=== PATIENT | female | born 1985 | race African-American/Black ===

== ENCOUNTER 2017-08-06 20:26 | Emergency (ER) | payer OTHER ==
[2017-08-06 21:01] LABS: BASO # 0.1 10^3/uL (0.0-0.2); BASO % 0.3 % (0.0-1.0); HEMATOCRIT 39.6 % (36.0-47.0); HEMOGLOBIN 12.3 g/dl (12.0-16.0); IMMATURE GRANULOCYTE # 0.1 10^3/uL (0-0); IMMATURE GRANULOCYTE % 0.6 % (0-0); LYMPH # 1.9 10^3/uL (1.5-4.5); LYMPH % 9.4 % (24.0-44.0); MEAN CORPUSCULAR HEMOGLOBIN 21.4 pg (27.0-33.0); MEAN CORPUSCULAR HGB CONC 31.1 g/dl (32.0-36.5); MEAN CORPUSCULAR VOLUME 68.9 fl (80.0-96.0); MONO # 1.8 10^3/uL (0.0-0.8); MONO % 9.3 % (0.0-5.0); NEUTROPHILS # 15.8 10^3/uL (1.8-7.7); NEUTROPHILS % 80.4 % (36.0-66.0); PLATELET COUNT, AUTOMATED 318 10^3/uL (150-450); RED BLOOD COUNT 5.75 10^6/uL (4.00-5.40); RED CELL DISTRIBUTION WIDTH 18.1 % (11.5-14.5); WHITE BLOOD COUNT 19.6 10^3/uL (4.0-10.0)
[2017-08-06] MEDS: RACEPINEPHrine 2.25 % UD INHA INH ×2 (21:12)
[2017-08-06] MEDS: AMPICILLIN SOD/SULBACTAM SOD 3 GM in D5W MINI-BAG PLUS 100 ML IV (21:20)
[2017-08-06 21:24] LABS: ANION GAP 10 MEQ/L (8-16); BLOOD UREA NITROGEN 12 MG/DL (7-18); CARBON DIOXIDE LEVEL 23 MEQ/L (21-32); CHLORIDE LEVEL 105 MEQ/L (98-107); CREATININE FOR GFR 0.97 MG/DL (0.55-1.30); GLOMERULAR FILTRATION RATE > 60.0 (>60); GLUCOSE, FASTING 128 MG/DL (70-100); POTASSIUM SERUM 3.4 MEQ/L (3.5-5.1); SODIUM LEVEL 138 MEQ/L (136-145)
[2017-08-06] MEDS ORDERED: ISOVUE-370 76% 100ML VIAL (Q9967) As Ordered ×2 (21:57)
[2017-08-06] MEDS: dexameTHASONE 20 MG/5 ML VIAL (J1100) IV ×2 (23:49)
[2017-08-07] MEDS: NS 1,000 ML IV ×2 (00:06)
[2017-08-07] MEDS: KETOROLAC 30 MG/ML VIAL (J1885) IV ×2 (00:07)
[2017-08-07] MEDS: AMPICILLIN SOD/SULBACTAM SOD 3 GM in D5W MINI-BAG PLUS 100 ML IV (03:03)
[2017-08-07] MEDS ORDERED: INFLUENZA QUADRIVALENT PF VACCINE 0.5ML SYRINGE (90686) IM ×2 (08:00)
[2017-08-07] MEDS: NORCO, ANEXSIA 5/325MG TABLET (HYDROcodone/ACETAMINOPHEN) PO ×2 (08:16)
== END 2017-08-07 08:51 | disposition home or self-care (01) ==
LOC: M ED 20:26
DX: J03.90 Acute tonsillitis, unspecified (principal); J39.1 Other abscess of pharynx
CPT/HCPCS: J1100

== ENCOUNTER → 2017-08-06 | Outpatient (REF) | payer OTHER | LOC: M SFHCLUC 11:30 | DX: J35.1 Hypertrophy of tonsils (principal) ==

== ENCOUNTER 2017-09-11 10:08 | Day surgery (SDC) | payer OTHER ==
[2017-09-11] MEDS ORDERED: LIDOCAINE 1% MDV 20ML VIAL SQ (10:15)
[2017-09-11] MEDS: LR 1,000 ML IV (10:29)
[2017-09-11 10:42] LABS: CONTROL LINE UCG INT CTR LINE PRESENT; URINE PREG TEST NEGATIVE (NEGATIVE)
[2017-09-11] MEDS ORDERED: PROPOFOL 200 MG/20 ML VIAL As Ordered (11:23)
[2017-09-11] MEDS ORDERED: LIDOCAINE 2% INJ 100 MG/5 ML SDV (FOR ANES.) As Ordered (11:23)
[2017-09-11] MEDS ORDERED: ROCURONIUM BROMIDE 50 MG/5 ML VIAL As Ordered (11:24)
[2017-09-11] MEDS ORDERED: dexameTHASONE 4 MG/ML 1ML VIAL (J1100) As Ordered ×2 (11:25)
[2017-09-11] MEDS ORDERED: fentaNYL 100 MCG/2 ML INJECTION (J3010) As Ordered ×2 (11:26→12:51)
[2017-09-11] MEDS ORDERED: MIDAZOLAM INJ 2 MG/2 ML VIAL (J2250) As Ordered (11:27)
[2017-09-11] MEDS ORDERED: OXYMETAZOLINE NASAL SPRAY (AFRIN) As Ordered (12:02)
[2017-09-11] MEDS: dexameTHASONE 4 MG/ML 1ML VIAL (J1100) IV (12:20)
[2017-09-11] MEDS ORDERED: GLYCOPYRROLATE INJ 0.2 MG/ML 2 ML VIAL As Ordered (12:30)
[2017-09-11] MEDS ORDERED: ONDANSETRON 4MG/2ML VIAL (J2405) As Ordered (12:49)
[2017-09-11] MEDS ORDERED: LR 1,000 ML IV ×2 (13:45)
[2017-09-11] MEDS ORDERED: fentaNYL 100 MCG/2 ML INJECTION (J3010) IV (13:45)
[2017-09-11] MEDS: KETOROLAC 30 MG/ML VIAL (J1885) IV (13:50)
[2017-09-11] MEDS: ONDANSETRON 4MG/2ML VIAL (J2405) IV (13:50)
[2017-09-11] MEDS: PERCOCET 5MG/325MG TAB PO (13:55)
== END 2017-09-11 15:25 | disposition home or self-care (01) ==
LOC: M SDC 10:08
DX: J35.1 Hypertrophy of tonsils (principal)
CPT/HCPCS: 42826

== ENCOUNTER → 2018-04-23 | Outpatient (CLI) | payer OTHER ==
[2018-04-23 09:03] LABS: CREATININE,RANDOM URINE 83.5 MG/DL
[2018-04-23 10:16] LABS: BASO % 0.2 % (0.0-1.0); EOS # 0.1 10^3/uL (0.0-0.50); EOS % 1.5 % (0.0-3.0); HEMATOCRIT 38.4 % (36.0-47.0); HEMOGLOBIN 11.8 g/dl (12.0-15.5); IMMATURE GRANULOCYTE % 0.3 % (0-3.0); MEAN CORPUSCULAR HEMOGLOBIN 22.1 pg (27.0-33.0); MEAN CORPUSCULAR HGB CONC 30.7 g/dl (32.0-36.5); MEAN CORPUSCULAR VOLUME 71.9 fl (80.0-96.0); MONO # 0.8 10^3/uL (0.0-0.8); MONO % 8.3 % (0.0-5.0); NEUTROPHILS # 6.5 10^3/uL (1.8-7.7); NEUTROPHILS % 68.7 % (36.0-66.0); PLATELET COUNT, AUTOMATED 314 10^3/uL (150-450); RED BLOOD COUNT 5.34 10^6/uL (4.00-5.40); RED CELL DISTRIBUTION WIDTH 17.4 % (11.5-14.5); WHITE BLOOD COUNT 9.4 10^3/uL (4.0-10.0)
[2018-04-23 11:07] LABS: CHLAMYDIA DNA AMPLIFICATION NEGATIVE (NEGATIVE)
[2018-04-23 11:46] LABS: HEMOGLOBIN A1c 5.9 %
[2018-04-23 13:55] LABS: ALT/SGPT 14 U/L (12-78); AST/SGOT 11 U/L (7-37); BILIRUBIN,TOTAL 0.3 MG/DL (0.2-1.0); CREATININE FOR GFR 0.61 MG/DL (0.55-1.30); GLOMERULAR FILTRATION RATE > 60.0 (>60); GLUCOSE CHALLENGE TEST 1 HOUR 109 MG/DL (LESS THAN 140); LDH LACTATE DEHYDROGENASE 187 U/L (84-246); URIC ACID 3.1 MG/DL (2.6-6.0)
[2018-04-24 10:58] LABS: RUBELLA IgG QUALITATIVE EQUIVOCAL (IMMUNE)
[2018-04-24 10:59] LABS: HBsAg Prenatal NEGATIVE (NEGATIVE)
[2018-04-24 11:27] LABS: HEPATITIS C VIRUS ABY INDEX < 0.0 INDEX (<0.8)
[2018-04-24 12:50] LABS: ESTIMATED AVERAGE GLUCOSE 123 MG/DL (60-110)
[2018-04-24 12:53] LABS: TOTAL PROTEIN,RANDOM URINE 9.5 MG/DL (0.0-12.0)
[2018-04-24 12:54] LABS: GC DNA AMPLIFICATION NEGATIVE (NEGATIVE)
[2018-04-24 12:55] LABS: HIV 1&2 SCREEN CENTAUR NEGATIVE (NEGATIVE)
== END ==
LOC: M LAB 08:08
DX: Z36.89 Encounter for other specified antenatal screening (principal); Z3A.10 10 weeks gestation of pregnancy
CPT/HCPCS: 84460

== ENCOUNTER → 2018-05-13 | Outpatient (REF) | payer OTHER | LOC: M LAB REF 17:00 | DX: O99.212 Obesity complicating pregnancy, second trimester (principal) ==

== ENCOUNTER → 2018-06-22 | Outpatient (CLI) | payer OTHER ==
[~2018-06-22] MED LIST: AUGM250S13 PO; DEXA1CON PO; HYDR1SOL17 PO; IBUP100S2 PO; IBUP100S5 PO; METH125VL IM
--- NOTE | 2018-06-23 04:36 | REP ---
Clinical: Anatomical evaluation. Comparison: None . Findings: Examination demonstrates a single live intrauterine in breech presentation. motion is identified by technologist. Placenta is noted anterior and grade grade 1 without evidence for placenta previa or abruption. Amniotic fluid volume is normal. Cervix measures 3.3 cm in length and appears closed. Nuchal cord cannot be excluded. Gestational age by LMP 19 weeks 6 days with KEVYN 11/10/2018 . Gestational age by current measurements 19 weeks 5 days with KEVYN 11/11/2018 . FHR equals 161 beats per minute. BPD 4.6 cm 19 weeks 5 days HC 17.0 cm 19 weeks 4 days AC 14.7 cm 20 weeks 0 days FL 3.1 cm 19 weeks 4 day HL 3.0 cm 19 weeks 6 days HC/AC ratio 1.16 Estimated weight 312 grams ( 42nd percentile). Anatomical assessment demonstrates normal structures including cranium, choroid plexus, cavum, cerebellum/posterior fossa, facial features, lungs, four-chamber heart/left ventricular outflow tract, diaphragm, stomach, cord insertion/three-vessel cord, kidneys/bladder, and extremities. Impression: 1. Single live intrauterine in breech presentation demonstrating appropriate interval growth. 2. Limited evaluation of the right cardiac ventricular outflow tract and spine may warrant reevaluation and follow-up. Remainder of the anatomical assessment is complete and normal. Electronically Signed by Zachary Nicole MD 06/23/2018 04:28 A
== END ==
LOC: M RAD 09:14
PROVIDERS: ATTEND Specialist
DX: O99.212 Obesity complicating pregnancy, second trimester (principal); Z3A.19 19 weeks gestation of pregnancy

== ENCOUNTER → 2018-07-21 | Outpatient (CLI) | payer OTHER ==
--- NOTE | 2018-07-22 05:01 | REP ---
Clinical: Anatomical evaluation. Comparison: 06/22/2018 . Findings: Examination demonstrates a single live intrauterine in cephalic presentation. motion is identified by technologist. Placenta is noted anterior and grade one without evidence for placenta previa or abruption. Amniotic fluid volume is normal. Cervix measures 3.8 cm in length and appears closed. No evidence for nuchal cord. Gestational age by LMP 24 weeks 0 days with KEVYN 11/10/2018 . Gestational age by current measurements 23 weeks 5 days with KEVYN see 11/12/2018 . FHR equals 136 beats per minute. Estimated weight 606 grams ( 32nd percentile). Anatomical assessment demonstrates normal structures including cranium, choroid plexus, cavum, cerebellum/posterior fossa, facial features, lungs, four-chamber heart/ventricular outflow tracts, diaphragm, stomach, cord insertion/three-vessel cord, bladder, and extremities. Impression: Single live intrauterine in cephalic presentation demonstrating appropriate interval growth. Limited evaluation of the spine again noted. Remainder of the anatomical assessment is complete and normal. Electronically Signed by Zachary Nicole MD 07/22/2018 04:52 A
== END ==
LOC: M RAD 09:06
PROVIDERS: ATTEND Advanced Practice Midwife
DX: Z34.82 Encounter for supervision of other normal pregnancy, second trimester (principal); Z36.89 Encounter for other specified antenatal screening; Z3A.24 24 weeks gestation of pregnancy

== ENCOUNTER 2018-08-12 14:25 | Outpatient (CLI) | payer OTHER ==
[~2018-08-12] VITALS: Ht 177.8 cm; Wt 130.9 kg
[~2018-08-12 14:25] MED LIST changes: -MAPA500T2 PO; -PRENTAB9 PO
[2018-08-12 14:47] VITALS: BP 146/101
[2018-08-12 15:09] VITALS: BP 130/61
[2018-08-12] MEDS: BETAMETHASONE SOLUSPAN 6MG/ML INJ 5ML (J0702) IM SCH (15:55)
[2018-08-12 16:29] VITALS: BP 138/77
[2018-08-12 18:05] VITALS: BP 129/64
--- NOTE | 2018-08-12 18:22 | IPN ---
DATE: 08/12/2018 Javed is a 33-year-old 5, para 4-0-0-4 at 27 weeks gestation with an estimated date of confinement (EDC) of 11/11/2018 based on first trimester ultrasound. She presents to labor and delivery today following an incidental finding of a shortened cervix for a routine follow-up anatomy ultrasound. She does deny vaginal bleeding, leakage of fluid and painful contractions. The fetus has been active. [facility]. Her course complicated by obesity, a history of gestational hypertension and prior pregnancies, advanced maternal age and GBS bacteremia, rubella equivocal with a plan to immunize. OBSTETRICAL HISTORY: September 2001 38-5/7 weeks, 6 pound, 9 ounce female, vaginal delivery, uncomplicated. February 2010 38-5/7 weeks gestation, 6 pound, 6 ounce male, vaginal delivery, uncomplicated. December 2011 41 weeks and two days, 7 pound 10 ounce female vaginal delivery, uncomplicated. July 2015 39-5/7 weeks, 6 pound, 10 ounce female, vaginal delivery, complicated by rapid precipitous delivery with a delivery in the vehicle on the way to the hospital and gestational hypertension for that . OBSTETRIC LABS: O+, antibody screen negative, rubella equivocal, VDRL nonreactive, positive Group B strep in the urine. Hepatitis B surface antigen negative, human immunodeficiency virus (HIV) negative. Hepatitis C antibody nonreactive. Gonorrhea and chlamydia negative. She did not have genetic serum screening labs drawn. Baseline pre-eclamptic labs in the normal range. PAST MEDICAL HISTORY: Gestational hypertension, varicose vein. The child had varicella. SURGERIES: Cholecystectomy. FAMILY HISTORY: Noncontributory. SOCIAL HISTORY: The patient is . Her is active duty soldier, who is currently out of town for training. She is a nonsmoker. Denies alcohol and drug use. No history of any sexually transmitted infections. Denies history of abuse. ALLERGIES: No known drug allergies. CURRENT MEDICATIONS: No regular medications. OBJECTIVE: Temperature 98.9, pulse 70, respirations 18, blood pressure (BP) is 138/77. She is alert and oriented x3. She is in no apparent distress, smiling and talkative. heart rate is 150, appropriate for gestational age. There is no pattern of contractions. Ultrasound reports fetus in cephalic presentation, spine still not seen due to position. Cervical length is 0.8 cm with the internal os appearing to be open. Sterile vaginal exam 2 cm dilated, 75% effaced and minus 2 station, posterior, soft. Very scant bloody show with the exam. ASSESSMENT: Intrauterine at 27 weeks. heart rate appropriate for gestational age. Asymptomatic cervical shortening. PLAN: Per consult with Dr. Musa, the patient for observation. Betamethasone has been already administered. She may have a regular diet. She may have bedrest with bathroom privileges. Plan to observe until beta complete and then further plan and care decision will be made following the second betamethasone injection. The patient has had all her questions answered and does understanding and agree with the plan.
[2018-08-12] MEDS ORDERED: PRENTAB9 PO (18:38)
[2018-08-12] MEDS ORDERED: MAPA500T2 PO (18:38)
[2018-08-12 19:11] VITALS: BP 130/71
[2018-08-12 21:02] VITALS: BP 103/59
[2018-08-13 06:36] VITALS: BP 97/53
[2018-08-13 08:01] VITALS: BP 109/62
--- NOTE | 2018-08-13 08:07 | NUR ---
Progress notes S: No complaints. No contractions. O: BP=99/53 P=66 AF NAD Abd: NT, gravid FHT: Cat I SVE: 2 cm/50%/-3 posterior moderate toco: none A/P 33 yo at 27 1/7 with cervical shortening Plan to give second dose of steroids today monitor intermittently Plan discharge today Raffi Musa MD
[2018-08-13] MEDS: BETAMETHASONE SOLUSPAN 6MG/ML INJ 5ML (J0702) IM SCH (11:18)
== END 2018-08-13 12:35 | disposition home or self-care (01) ==
LOC: M LDO 14:25
PROVIDERS: ATTEND Advanced Practice Midwife
DX: O26.873 Cervical shortening, third trimester (principal); O47.03 False labor before 37 completed weeks of gestation, third trimester; Z3A.27 27 weeks gestation of pregnancy
CPT/HCPCS: 96372; G0378; G0463; J0702

== ENCOUNTER → 2018-08-12 | Outpatient (CLI) | payer OTHER ==
[~2018-08-12] MED LIST changes: +MAPA500T2 PO; +PRENTAB9 PO
[2018-08-12 14:18] LABS: BASO % 0.2 % (0.0-1.0); EOS # 0.1 10^3/uL (0.0-0.50); EOS % 1.2 % (0.0-3.0); HEMATOCRIT 34.2 % (36.0-47.0); HEMOGLOBIN 10.4 g/dl (12.0-15.5); LYMPH # 1.6 10^3/uL (1.5-4.5); LYMPH % 14.7 % (24.0-44.0); MEAN CORPUSCULAR HEMOGLOBIN 22.5 pg (27.0-33.0); MEAN CORPUSCULAR HGB CONC 30.4 g/dl (32.0-36.5); MONO # 0.8 10^3/uL (0.0-0.8); MONO % 7.2 % (0.0-5.0); NEUTROPHILS # 8.1 10^3/uL (1.8-7.7); NEUTROPHILS % 76.2 % (36.0-66.0); PLATELET COUNT, AUTOMATED 329 10^3/uL (150-450); RED BLOOD COUNT 4.62 10^6/uL (4.00-5.40); WHITE BLOOD COUNT 10.6 10^3/uL (4.0-10.0)
== END ==
LOC: M SMT 08:48
PROVIDERS: ATTEND Obstetrics & Gynecology
DX: O09.522 Supervision of elderly multigravida, second trimester (principal); Z3A.00 Weeks of gestation of pregnancy not specified

== ENCOUNTER → 2018-08-12 | Outpatient (CLI) | payer OTHER ==
--- NOTE | 2018-08-12 15:29 | REP ---
Obstetric sonography: History: Supervision of . Advanced maternal age. Follow-up. Findings: Scanning through the gravid uterus demonstrates a viable single intrauterine gestation in a cephalic lie. motion is observed and heart rate is recorded at 149 beats per minute. Anterior grade 1 placenta is seen without evidence of previa or abruption. Amniotic fluid is subjectively normal. Closed cervical length measured transvaginally is only 0.8 cm. Internal cervical os is open with fluid in the endocervical canal. There has been appropriate interval growth. No extrauterine abnormality is observed. No anomaly is seen. spine is less than optimally seen today due to position. The following additional anatomic structures are again identified and felt to be sonographically unremarkable: cranium, choroid plexus, cavum, cerebellum and posterior fossa, face and profile, lungs, four-chamber heart with left and right ventricular outflow tract views, diaphragm, left-sided stomach, abdominal wall cord insertion, three-vessel umbilical cord, kidneys and bladder, upper and lower extremities. Biometry chart: BPD 6.6 cm, 26 weeks 4 days Head circumference 24.2 cm 26 weeks 2 days Abdominal circumference 23.0 cm 27 weeks 3 days Femur length 5.1 cm 27 weeks 2 days Humeral length 4.6 cm 27 weeks 2 days HC/AC ratio normal 1.05, cephalic index normal 0.76, estimated weight 1040 grams, 2 pounds 4 ounces, 45th percentile for 27 weeks 1 day. Impression: 1. Viable single intrauterine gestation at 27 weeks 0 days by today's composite sonographic criteria. Expected gestational age estimate based on prior sonography is 27 weeks 0 days as well. KEVYN by prior sonography November 11, 2018. 2. spine still less than optimally seen due to position. Otherwise anatomic survey is complete. 3. Closed cervical length is only 0.8 cm today with internal cervical os seen to be open on transvaginal imaging. Electronically Signed by Bi Monge MD 08/12/2018 07:18 P
== END ==
LOC: M RAD 13:17
PROVIDERS: ATTEND Advanced Practice Midwife
DX: O09.522 Supervision of elderly multigravida, second trimester (principal); Z3A.27 27 weeks gestation of pregnancy

== ENCOUNTER → 2018-08-26 | Outpatient (CLI) | payer OTHER ==
[~2018-08-26] MED LIST changes: +MAPA500T2 PO; +PRENTAB9 PO
== END ==
LOC: M LAB 08:18
PROVIDERS: ATTEND Obstetrics & Gynecology
DX: O09.522 Supervision of elderly multigravida, second trimester (principal); Z3A.00 Weeks of gestation of pregnancy not specified

== ENCOUNTER → 2018-08-26 | Outpatient (CLI) | payer OTHER ==
--- NOTE | 2018-08-27 05:13 | REP ---
Clinical: Anatomical evaluation. Comparison: 08/12/2018 . Findings: Examination demonstrates a single live intrauterine in the cephalic presentation. motion is identified by technologist. Placenta is noted anterior and grade there are grade 1 without evidence for placenta previa or abruption. Amniotic fluid volume is normal. Incompetent cervix measures 4 mm length. Gestational age by LMP 29 weeks 1 day with KEVYN 11/10/2018 . Gestational age by current measurements 29 weeks 1 day with KEVYN 11/10/2018 . FHR equals 145 beats per minute. Estimated weight 1348 grams ( 43rd percentile). Amniotic fluid index: 12.4 cm Umbilical cord SD ratio: 2.99 Anatomical is limited but without obvious abnormality. Impression: 1. Single live intrauterine in cephalic presentation demonstrating appropriate interval growth. 2. Incompetent cervix at 4 mm length. Ordering physician was advised and patient was sent home as per MD request. Electronically Signed by Zachary Nicoel MD 08/27/2018 05:05 A
== END ==
LOC: M RAD 11:52
PROVIDERS: ATTEND Advanced Practice Midwife
DX: O09.523 Supervision of elderly multigravida, third trimester (principal); O34.33 Maternal care for cervical incompetence, third trimester; Z3A.29 29 weeks gestation of pregnancy

== ENCOUNTER → 2018-10-16 | Outpatient (REF) | payer OTHER ==
[~2018-10-16] MED LIST changes: +IBUP0.77 PO; -IBUP100S2 PO; -IBUP100S5 PO; +IBUP100S65 PO
== END ==
LOC: M LAB REF 13:34
PROVIDERS: ATTEND Advanced Practice Midwife
DX: O09.523 Supervision of elderly multigravida, third trimester (principal); Z3A.00 Weeks of gestation of pregnancy not specified

== ENCOUNTER 2018-10-19 22:51 | Outpatient (CLI) | payer OTHER ==
[~2018-10-19] VITALS: Ht 180.3 cm; Wt 127.3 kg
[2018-10-19 23:08] VITALS: BP 113/77
--- NOTE | 2018-10-20 00:42 | REPVR ---
EXAM: US Doppler Velocimetry of the Umbilical Artery EXAM DATE/TIME: 10/19/2018 12:02 AM CLINICAL HISTORY: 33 years old, female; Signs and symptoms; Other: Decreased movement; . TECHNIQUE: Imaging protocol: US Doppler velocimetry of the umbilical artery with Doppler color and waveform analysis. COMPARISON: US OBS FOLL UP OR REPEAT EACH GES 08/26/2018 12:08 PM FINDINGS: Umbilical artery Doppler: Waveforms are within normal limits for age. Umbilical artery peak systolic velocity: Peak systolic velocity is 43 cm/s. Umbilical artery systolic to diastolic ratio: Systolic to diastolic ratio is within normal limits for age. S./D. ratio is 2.5. IMPRESSION: Unremarkable umbilical Doppler for age. EXAM: US , Limited EXAM DATE/TIME: 10/19/2018 12:02 AM CLINICAL HISTORY: 33 years old, female; Signs and symptoms; Other: Decreased movement; TECHNIQUE: Imaging protocol: Real-time ultrasound of the maternal uterus with image documentation. Exam focused on the clinical indication. COMPARISON: US OBS FOLL UP OR REPEAT EACH [facility] 08/26/2018 12:08 PM FINDINGS: GESTATION: Gestation: Single live intrauterine gestation. Estimated gestational age: Biometry for age was not measured. Heart rate: heart rate measures 147 beats per minute. Presentation: Vertex lie. Placenta: Placenta is anterior. No placenta abruption. No placenta previa. Amniotic fluid: ROBY 12.7. Cervix: Cervix not well-seen. IMPRESSION: Single live intrauterine gestation. Vertex lie of the fetus. Limited evaluation. Anatomical survey was not performed. EXAM: US Biophysical Profile Without Non-Stress Test EXAM DATE/TIME: 10/19/2018 12:02 AM CLINICAL HISTORY: 33 years old, female; Signs and symptoms; Other: Decreased movement; TECHNIQUE: Imaging protocol: US biophysical profile without non-stress testing. COMPARISON: US OBS FOLL UP OR REPEAT EACH GES 08/26/2018 12:08 PM FINDINGS: Breathin/2 Gross body movements: 2/2 tone: 2/2 Qualitative amniotic fluid: 2/2 IMPRESSION: Biophysical profile score is 8 out of 8. Electronically signed by: Raisa Causey On 10/20/2018 00:42:26 AM
--- NOTE | 2018-10-20 02:11 | IPNPDOC ---
Text Note Date of Service The patient was seen on 10/20/18. NOTE Subjective: Patient is a 33-year-old female who is a at 36.6 weeks gestation with an KEVYN of 11/11/2018. She presents to L&D with decreased movement for the last 6 hours. She reports she has felt movement since she has been here in the department. She denies contractions, leaking of fluid, vaginal bleeding. Objective: VS and sono: see below. FHR: 140, moderate variability, positive accelerations, no decelerations. Contractions: occasional. A+Ox3; Respiratory: regular rate with no use of accessory muscles. Abdomen: gravid and palpates soft. Assessment: IUP at 36.6 weeks gestation, decreased movement-resolved; Category I FHR tracing Plan: BPP ordered. See below. BPP 02/11. Patient discharge to home with . She is to follow-up for her routine appointment on . Reviewed access to care, kick count, labor signs, and danger signs to report. VS,Fishbone, I+O VS, Fishbone, I+O Vital Signs Date Time Temp Pulse Resp B/P (MAP) Pulse Ox O2 Delivery O2 Flow Rate FiO2 10/19/18 23:08 97.6 74 16 113/77 (89) EXAM DATE/TIME: 10/19/2018 12:02 AM CLINICAL HISTORY: 33 years old, female; Signs and symptoms; Other: Decreased movement; . TECHNIQUE: Imaging protocol: US Doppler velocimetry of the umbilical artery with Doppler color and waveform analysis. COMPARISON: US OBS FOLL UP OR REPEAT EACH GES 08/26/2018 12:08 PM FINDINGS: Umbilical artery Doppler: Waveforms are within normal limits for age. Umbilical artery peak systolic velocity: Peak systolic velocity is 43 cm/s. Umbilical artery systolic to diastolic ratio: Systolic to diastolic ratio is within normal limits for age. S./D. ratio is 2.5. IMPRESSION: Unremarkable umbilical Doppler for age. EXAM: US , Limited EXAM DATE/TIME: 10/19/2018 12:02 AM CLINICAL HISTORY: 33 years old, female; Signs and symptoms; Other: Decreased movement; TECHNIQUE: Imaging protocol: Real-time ultrasound of the maternal uterus with image documentation. Exam focused on the clinical indication. COMPARISON: US OBS FOLL UP OR REPEAT EACH GES 08/26/2018 12:08 PM FINDINGS: GESTATION: Gestation: Single live intrauterine gestation. Estimated gestational age: Biometry for age was not measured. Heart rate: heart rate measures 147 beats per minute. Presentation: Vertex lie. Placenta: Placenta is anterior. No placenta abruption. No placenta previa. Amniotic fluid: ROBY 12.7. Cervix: Cervix not well-seen. IMPRESSION: Single live intrauterine gestation. Vertex lie of the fetus. Limited evaluation. Anatomical survey was not performed. EXAM: US Biophysical Profile Without Non-Stress Test EXAM DATE/TIME: 10/19/2018 12:02 AM CLINICAL HISTORY: 33 years old, female; Signs and symptoms; Other: Decreased movement; TECHNIQUE: Imaging protocol: US biophysical profile without non-stress testing. COMPARISON: US OBS FOLL UP OR REPEAT EACH [facility] 08/26/2018 12:08 PM FINDINGS: Breathin/2 Gross body movements: 2/2 tone: 2/2 Qualitative amniotic fluid: 2/2 IMPRESSION: Biophysical profile score is 8 out of 8. Electronically signed by: Raisa Causey On 10/20/2018 00:42:26 AM COOPER SOLOMON CNM Oct 20, 2018 02:11
== END 2018-10-20 01:32 | disposition home or self-care (01) ==
LOC: M LDO 22:51
PROVIDERS: ATTEND Advanced Practice Midwife
DX: O36.8130 Decreased fetal movements, third trimester, not applicable or unspecified (principal); Z3A.36 36 weeks gestation of pregnancy
CPT/HCPCS: 59025; 76815; 76819; 76820; G0378; G0463

== ENCOUNTER 2018-10-30 10:13 | Inpatient (IN) | payer OTHER ==
[2018-10-30] VITALS (27 sets, daily range): BP systolic 109–146; BP diastolic 58–94
[~2018-10-30] VITALS: Ht 180.3 cm; Wt 130.2 kg
[2018-10-30] MEDS ORDERED: LR 1,000 ML IV SCH (10:45)
[2018-10-30] MEDS ORDERED: PENICILLIN G POTASSIUM IV 5 MU in D5W MINI-BAG PLUS 100 ML IV STA (10:45)
[2018-10-30] MEDS ORDERED: OXYTOCIN DRIP 30 UNITS in APPROPRIATE DILUENT 1 EA IV SCH ×2 (10:45→18:36)
[2018-10-30] MEDS ORDERED: LACTATED RINGER'S 1000 ML IV STA (10:45)
[2018-10-30 11:16] LABS: HEMATOCRIT 35.1 % (36.0-47.0); MEAN CORPUSCULAR HEMOGLOBIN 22.6 pg (27.0-33.0); MEAN CORPUSCULAR HGB CONC 31.3 g/dl (32.0-36.5); MEAN CORPUSCULAR VOLUME 72.1 fl (80.0-96.0); PLATELET COUNT, AUTOMATED 315 10^3/uL (150-450); RED BLOOD COUNT 4.87 10^6/uL (4.00-5.40); WHITE BLOOD COUNT 8.7 10^3/uL (4.0-10.0)
--- NOTE | 2018-10-30 11:22 | HPE ---
DATE OF ADMISSION: 10/30/2018 Javed is a 33-year-old 5, para 4-0-0-4 at 38-3/7 weeks gestation with an EDC of 11/11/2018 based on first trimester ultrasound. She presents to labor and delivery today with report of rupture of membranes at approximately 0700. Clear fluid. Denies any vaginal bleeding. She has continued leakage of fluid. Denies any regular painful contractions. [facility] at [facility]. Her care complicated by obesity, a history of gestational hypertension, advanced maternal age and GBS bacteria, rubella equivocal and asymptomatic cervical shortening and 27 weeks gestation with a completed a course of betamethasone. OBSTETRICAL HISTORY: September 2001, 38-5/7 weeks gestation, spontaneous vaginal delivery for 6 pound 9 ounce female. February 2010, 38 weeks and 5 days, 6 pound 6 ounce male, vaginal delivery. December 2011, 41-2/7 weeks, 7 pound 10 ounce female, vaginal delivery. July 2015, 39-5/7 weeks, 6 pound 10 ounce female, vaginal delivery. The baby was born in the car on the way to the hospital. OBSTETRIC LABS: O+, antibody screen negative, rubella equivocal, VDRL nonreactive. Urine culture positive for group B strep bacteria. Hep B surface antigen negative, HIV negative. Hep C antibody nonreactive. Gonorrhea, chlamydia negative. She did decline genetic serum screening labs. Gestational diabetic screening elevated at 166 and she did have a normal 3-hour glucose tolerance test. Fasting 82, 1-hour 59, 2-hour 138, 3-hour 119. Again GBS positive in the urine. She was treated. Followup urine culture was no growth. PAST MEDICAL HISTORY: Varicose veins. Gestational hypertension. Childhood varicella. SURGERIES: Cholecystectomy. FAMILY HISTORY: Noncontributory. SOCIAL HISTORY: The patient is single, however the father of the baby is reportedly involved. He is not present at this time. She is a nonsmoker. Denies alcohol or drug use. No history of any sexually transmitted infections and denies history of abuse physical, sexual and emotional. ALLERGIES: No known drug allergies. CURRENT MEDICATIONS: vitamin. OBJECTIVE: Temperature 97.2, pulse 70, BP is 135/78. She is alert and oriented times three. She is in no apparent distress, smiling and talkative. heart rate is 135 with moderate variability, positive accelerations, no decelerations. There is no pattern of regular contractions. Her abdomen is gravid, cephalic presentation. Estimated weight 7 pounds. Sterile spec exam negative pooling, negative Valsalva, positive Nitrazine, positive fern, visually she is dilated. Sterile vaginal exam 4-5 cm dilated, 80% effaced, -2 station. ASSESSMENT: Intrauterine at 38-3/7 weeks. heart rate category 1. Premature rupture of membranes. PLAN: Admit the patient to labor and delivery. Out of bed ad марина. Clear liquid diet. Routine labs. Saline lock. Start antibiotics for GBS prophylaxis. Will initiate IV Pitocin for induction of labor once she has been appropriately treated for GBS positive status. The patient is requesting an epidural for her labor coping. I do anticipate labor, spontaneous vaginal delivery. She has been verbally consented for emergency surgery and blood products if necessary. ELENA
[2018-10-30] MEDS: LR 1,000 ML IV SCH ×2 (12:21→15:17)
[2018-10-30] MEDS ORDERED: FENTANYL 2MCG/ML ROPIVACAINE 0.2% IN 0.9% NACL 100ML IVBAG As Ordered ONE (14:31)
[2018-10-30] MEDS ORDERED: PENICILLIN G POTASSIUM IV 2.5 MU in APPROPRIATE DILUENT 1 EA IV SCH (15:00)
[2018-10-30] MEDS ORDERED: ePHEDrine SULFATE 25 MG/5 ML(5MG/ML) SYRINGE IV PRN (16:15)
[2018-10-30] MEDS ORDERED: FENTANYL/ROPIVACAINE/NACL BAG 100 ML EPIDURAL SCH (16:15)
[2018-10-30] MEDS ORDERED: REFRIGERATOR IV KEYS XX PRN (16:15)
[2018-10-30] MEDS ORDERED: ONDANSETRON 4MG/2ML VIAL (J2405) IV PRN (16:15)
[2018-10-30] MEDS ORDERED: EPIDURAL/PCA KEYS XX PRN (16:15)
[2018-10-30] MEDS ORDERED: NALOXONE INJ 0.4 MG/1 ML VIAL (J2310) IV PRN (16:15)
[2018-10-30] MEDS ORDERED: diphenhydrAMINE INJ 50MG/ML VIAL (J1200) IV PRN (16:15)
[2018-10-30] MEDS ORDERED: LACTATED RINGER'S 1000 ML IV PRN (16:15)
[2018-10-30] MEDS ORDERED: EPIDURAL COMMENT XX SCH (16:15)
[2018-10-30] MEDS ORDERED: DOCUSATE SODIUM 100 MG CAP PO PRN (18:45)
[2018-10-30] MEDS ORDERED: RHOGAM 300 MCG (1500 IU) INJ (J2790) IM SCH (18:45)
[2018-10-30] MEDS ORDERED: DIBUCAINE 1% OINTMENT 30GM TOP PRN (18:45)
[2018-10-30] MEDS ORDERED: METHYLERGONOVINE MALEATE 0.2 MG TAB PO PRN (18:45)
[2018-10-30] MEDS ORDERED: MEASLES,MUMPS,RUBELLA VACCINE INJ (MMR-II) (90707) SC SCH (18:45)
--- NOTE | 2018-10-30 19:11 | DN ---
DATE: 10/30/2018 Javed is a 33-year-old 5, para 5-0-0-5 now, who was admitted to labor and delivery with premature rupture of membranes. She had IV Pitocin for labor induction and did utilize an epidural for her labor coping. She reached full dilation at 1800. She pushed to a spontaneous vaginal delivery of a live female in direct OP position with restitution to LOT position. There was no nuchal cord. The shoulders delivered with gentle downward traction and the corpus immediately followed. The female was placed on maternal abdomen, crying and active. Her mouth and nares were bulb suctioned. The cord was clamped x2 and cut by the father of the baby under my direction. A spontaneous expulsion of an intact placenta with three-vessel cord by Jaime mechanism was at 1824. There was trailing membranes that were teased out with ring forceps. Uterine hemostasis achieved with IV Pitocin, rapid infusion and uterine fundal massage. Estimated blood loss 300 mL. Perineum and vagina inspected, noted to be intact. [place] female weight is pending, score 9/9. Family have named their daughter Elham and she is going to be bottle fed. At the close of delivery, lap counts and instrument counts were correct and verified. [facility]
[2018-10-30] MEDS ORDERED: SLF 3 ML SYR IV PRN (19:15)
[2018-10-30] MEDS: SLF 3 ML SYR IV SCH (22:00)
[2018-10-31] MEDS: IBUPROFEN 800 MG TAB PO PRN ×2 (03:50→16:19)
[2018-10-31] MEDS: SLF 3 ML SYR IV SCH ×3 (06:00→22:00)
[2018-10-31 06:32] VITALS: BP 129/72
[2018-10-31] MEDS: PRENATAL VITAMINS CHEWABLE TABLET PO SCH (09:27)
[2018-10-31] MEDS: ACETAMINOPHEN 500 MG TAB PO PRN ×2 (09:34→23:39)
[2018-10-31 17:48] VITALS: BP 135/69
[2018-11-01 06:00] VITALS: BP 133/84
[2018-11-01] MEDS: SLF 3 ML SYR IV SCH (06:00)
[2018-11-01] MEDS ORDERED: MAPA500T2 PO (07:20)
[2018-11-01] MEDS ORDERED: IBUP-1114 PO (07:20)
[2018-11-01] MEDS ORDERED: INFLUENZA QUADRIVALENT PF VACCINE 0.5ML SYRINGE (90686) IM PRN (07:45)
[2018-11-01] MEDS: PRENATAL VITAMINS CHEWABLE TABLET PO SCH (08:54)
== END 2018-11-01 10:55 | disposition home or self-care (01) | DRG 807 ==
LOC: M LDI 10:13 → M OBS 20:51
PROVIDERS: ADMIT Advanced Practice Midwife; ATTEND Advanced Practice Midwife
PROC: 10E0XZZ Delivery of Products of Conception, External Approach (ICD-10-PCS; principal; 2018-10-30)
DX: O42.02 Full-term premature rupture of membranes, onset of labor within 24 hours of rupture (principal); Z37.0 Single live birth; Z3A.38 38 weeks gestation of pregnancy; O99.214 Obesity complicating childbirth; E66.9 Obesity, unspecified; O99.824 Streptococcus B carrier state complicating childbirth

== ENCOUNTER 2019-09-17 13:45 | Emergency (ER) | payer OTHER ==
[~2019-09-17] VITALS: Ht 175.3 cm; Wt 118.2 kg
[~2019-09-17 13:45] MED LIST changes: +IBUP-1114 PO
[2019-09-17] MEDS ORDERED: ACETAMINOPHEN 325 MG TAB PO ONE (14:30)
--- NOTE | 2019-09-17 15:48 | REP ---
Left tibia-fibula four views : There is no fracture or dislocation. Mineralization and joint spaces are normal. There are no calcifications or foreign bodies. Impression: Negative left tibia fibula . Electronically Signed by James Booker MD 09/17/2019 03:37 P
--- NOTE | 2019-09-17 16:08 | REP ---
HISTORY: Pain after trauma. COMPARISON: None. FINDINGS: No acute fracture or destructive osseous lesion. The mortise is intact. There is a small plantar calcaneal heel spur. Electronically Signed by Sanya Celestin DO 09/17/2019 04:11 P
[2019-09-17 16:12] VITALS: BP 133/75
== END 2019-09-17 16:49 | disposition home or self-care (01) ==
LOC: M ED 13:45
DX: S80.12XA Contusion of left lower leg, initial encounter (principal); S93.402A Sprain of unspecified ligament of left ankle, initial encounter; V49.59XA Passenger injured in collision with other motor vehicles in traffic accident, initial encounter; Y92.410 Unspecified street and highway as the place of occurrence of the external cause; I10 Essential (primary) hypertension